=== PATIENT | female | born 1995 | race Caucasian/White ===

== ENCOUNTER → 2025-02-07 | Outpatient (CLI) | payer SELFPAY ==
--- NOTE | 2025-02-07 21:43 | RAD_ITS ---
PROCEDURE: RIBS TONI MIN 4V W/PA CHEST 02/07/2025 REASON FOR EXAM: L RIB FRACTURE TECHNIQUE: Procedure Code: RADRIBB Modality: DX Procedure: RIBS TONI MIN 4V W/PA CHEST COMPARISON: None. FINDINGS: Heart: Unremarkable. Mediastinum: Unremarkable. Lungs/pleura: No focal consolidation. No sizeable pleural effusion or visible pneumothorax. Bones: No visible acute displaced rib fracture. Lines and support devices: None. Other: None. RAD/Ribs Toni Min 4V w/PA Chest IMPRESSION: No visible acute displaced rib fracture or visible pneumothorax. Reading Location: [id number]
== END | disposition home or self-care (01) ==
LOC: RAD 21:14
PROVIDERS: Referring Provider Chiropractor
DX: S22.32XA Fracture of one rib, left side, initial encounter for closed fracture (principal); X58.XXXA Exposure to other specified factors, initial encounter
CPT/HCPCS: 71111